=== PATIENT | female | born 1980 ===

== ENCOUNTER 2021-02-16 12:38 | Observation (INO) ==
[~2021-02-16 12:38] MED LIST: Acetaminophen IV 1 GM/100ML 100 ML IV ONE; Buffered Lidocaine 1% SYRIN 1 ml INTRADERM ONE; Bupivacaine 0.25% SDV 30 ML ONE; DiMENhydriNATE IV 50 mg/ml 1 ml VIAL IV PUSH PRN; Lactated Ringers 1000 ml BAG 1,000 ML IV SCH; Naloxone 0.4 mg VIAL 0.4 mg/ml 1 ml VIAL IV PRN
[2021-02-16] MEDS ORDERED: ceFAZolin 2 GM in NS PREMIX 2 GM/100 ML BAG IVPB ONE (13:06)
[2021-02-16] MEDS ORDERED: Midazolam 2 mg/2 ml VIAL 1 mg/ml 2 ml VIAL (2 mg) ONE (13:52)
[2021-02-16] MEDS ORDERED: fentaNYL 250 mcg/5 ml 50 MCG/ML 5 ml VIAL (250 MCG) ONE (13:52)
[2021-02-16] MEDS ORDERED: Buffered Lidocaine 1% SYRIN 1 ml INTRADERM ONE (13:56)
[2021-02-16] MEDS ORDERED: EPHEDrine (Pressors) 50 MG/ML VIAL ONE (13:56)
[2021-02-16] MEDS ORDERED: Ondansetron 4 mg VIAL 2 MG/ML 2 ml VIAL ONE (14:00)
[2021-02-16] MEDS ORDERED: Propofol 10 MG/ML 20 ML BTL ONE ×2 (14:00→15:46)
[2021-02-16] MEDS ORDERED: Dexamethasone IV 4 MG/ML VIAL 1 ml VIAL ONE (14:00)
[2021-02-16] MEDS ORDERED: Acetaminophen IV 1 GM/100ML 100 ML IV ONE (16:01)
[2021-02-16] MEDS: fentaNYL 100 mcg/2 ml 50 MCG/ML VIAL IV PRN ×4 (17:19→17:44)
[2021-02-16] MEDS ORDERED: fentaNYL 100 mcg/2 ml 50 MCG/ML VIAL ONE (17:19)
[2021-02-16] MEDS ORDERED: Magnesium Hydroxide LIQ 30 ML UDC PO PRN (19:34)
[2021-02-16] MEDS ORDERED: Ondansetron 4 mg VIAL 2 MG/ML 2 ml VIAL IV PRN (19:34)
[2021-02-16] MEDS ORDERED: Lactulose 30 ml UDC PO PRN (19:34)
[2021-02-16] MEDS ORDERED: diPHENhydraMINE IV 50 MG/ML 1 ml VIAL (BENADRYL) IV PRN (19:34)
[2021-02-16] MEDS ORDERED: diPHENhydraMINE 25 mg TAB PO PRN (19:34)
[2021-02-16] MEDS ORDERED: Ondansetron ODT 4 mg TAB 4 MG TAB PO PRN (19:34)
[2021-02-16 19:42] LABS: Rapid COVID-19 Molecular Undetected (Undetected)
[2021-02-17] MEDS: Magnesium Hydroxide LIQ 30 ML UDC PO SCH ×2 (01:39→07:36)
[2021-02-17] MEDS: Amoxicillin/Clavul 875/125 TAB (Augmentin 875 tab) PO SCH ×2 (01:42→07:36)
[2021-02-17 08:01] VITALS: BP 131/72
[2021-02-17] MEDS ORDERED: Vitamin THERAPEUTIC TAB PO SCH (09:00)
== END 2021-02-17 10:31 | disposition home or self-care (01) ==
LOC: OREAST 12:38 → SSU 19:08 → INTOOBSV 19:08
PROVIDERS: ADMIT Orthopaedic Surgery Hand Surgery; ATTEND Orthopaedic Surgery Hand Surgery